=== PATIENT | female | born 1990 | race Two or more races ===

== ENCOUNTER 2022-04-17 18:04 | Emergency (ER) | payer BC ==
[~2022-04-17] VITALS: Ht 172.7 cm; Wt 72.6 kg
[~2022-04-17 18:04] MED LIST: AMOX1TAB12 PO; FLONASE16 G1 NS; MUCINEX D1 TAB.SR . PO
== END 2022-04-17 21:56 | disposition home or self-care (01) ==
LOC: ER 18:04
DX: S39.92XA Unspecified injury of lower back, initial encounter (principal); W18.30XA Fall on same level, unspecified, initial encounter; Y93.9 Activity, unspecified; Y92.59 Other trade areas as the place of occurrence of the external cause; I10 Essential (primary) hypertension; M62.838 Other muscle spasm